=== PATIENT | male | born 1935 | race Caucasian/White ===

== ENCOUNTER 2017-08-28 11:00 | Outpatient (RCR) | payer MEDICARE, OTHER | END 2017-09-19 | disposition home or self-care (01) | LOC: PTY 11:00 | DX: M51.36 Other intervertebral disc degeneration, lumbar region (principal); M54.16 Radiculopathy, lumbar region; M43.06 Spondylolysis, lumbar region | CPT/HCPCS: 97110; 97112; 97140; 97162; G0283; G8978; G8979 ==

== ENCOUNTER 2017-09-21 10:40 | Outpatient (RCR) | payer MEDICARE, OTHER | END 2017-10-17 | disposition home or self-care (01) | LOC: PTY 10:40 | DX: M51.36 Other intervertebral disc degeneration, lumbar region (principal); M54.16 Radiculopathy, lumbar region; M43.06 Spondylolysis, lumbar region | CPT/HCPCS: 97110; 97140; G0283; G8978; G8979 ==

== ENCOUNTER 2017-11-02 13:00 | Outpatient (RCR) | payer MEDICARE, OTHER | END 2017-11-17 | disposition home or self-care (01) | LOC: PTY 13:00 | DX: M51.36 Other intervertebral disc degeneration, lumbar region (principal); M54.16 Radiculopathy, lumbar region; M43.06 Spondylolysis, lumbar region | CPT/HCPCS: 97110; 97140; G0283 ==

== ENCOUNTER 2017-11-20 10:38 | Outpatient (RCR) | payer MEDICARE, OTHER | END 2017-12-17 | disposition home or self-care (01) | LOC: PTY 10:38 | DX: M51.36 Other intervertebral disc degeneration, lumbar region (principal); M54.16 Radiculopathy, lumbar region; M43.06 Spondylolysis, lumbar region | CPT/HCPCS: 97032; 97110; 97140; G0283 ==

== ENCOUNTER 2017-12-20 10:44 | Outpatient (RCR) | payer MEDICARE, OTHER | END 2018-01-17 | disposition home or self-care (01) | LOC: PTY 10:44 | DX: M51.36 Other intervertebral disc degeneration, lumbar region (principal); M54.16 Radiculopathy, lumbar region; M43.06 Spondylolysis, lumbar region | CPT/HCPCS: 97032; 97110; 97140; G8979; G8980 ==